=== PATIENT | male | born 1990 | race Caucasian/White ===

== ENCOUNTER 2023-09-28 18:55 | Emergency (ER) | payer OTHER, SELFPAY ==
[2023-09-28 19:07] VITALS: BP 164/81; PULSE 69; RESP 18; TEMP 36.7; O2SAT 98
--- NOTE | 2023-09-28 19:45 | DI.RAD_ITS ---
Exam(s) XR TOE RT FIFTH EXAM: XR TOE RT FIFTH CLINICAL HISTORY: injury toe. TECHNIQUE: 2D digital imaging was performed of the right foot. Three images were obtained. AP, obl ique and lateral views were obtained. COMPARISON: There are no priors for comparison. FINDINGS: BONES: No acute fracture is present. No bony destructive lesion is seen. JOINTS: There is mild lateral subluxation of the middle phalanx relative to the proximal phalanx of t he 5th toe. SOFT TISSUE: Normal. IMPRESSION: Mild lateral subluxation at the PIP joint of the right 5th toe. DATA REPOSITORY: RADIATION DOSE DELIVERED:
--- NOTE | 2023-09-28 21:15 | DI.RAD_ITS ---
Exam(s) XR TOE RT FIFTH EXAM: XR TOE RT FIFTH CLINICAL HISTORY: post reduction. TECHNIQUE: 2D digital imaging was performed of the right 5th toe. Three images were obtained. AP, oblique and lateral views were obtained. COMPARISON: CR,XR XR TOE RT FIFTH from 09/28/2023 FINDINGS: BONES: No acute fracture is present. No bony destructive lesion is seen. JOINTS: There is persistent mild lateral subluxation of the PIP joint of the 5th toe. This is apprec iated only on the oblique view. There is 1.5 mm of subluxation present. SOFT TISSUE: Normal. IMPRESSION: Persistent mild lateral subluxation of the PIP joint of the right 5th toe. DATA REPOSITORY: RADIATION DOSE DELIVERED:
--- NOTE | 2023-09-28 21:26 | DI.VRAD_ITS ---
Addendum created by Aisha Villela MD on 09/28/2023 9:27:39 PM EDT: There is some lateral offset of the middle and distal phalanges the 5th toe consistent with subluxation. Initial report created on 09/28/2023 9:26:19 PM EDT: PROCEDURE INFORMATION: Exam: XR Right Toe(s) Exam date and time: 09/28/2023 8:16 PM Age: 33 years old Clinical indication: Other: Injury toe 5th TECHNIQUE: Imaging protocol: Radiologic exam of the right toes. Views: Minimum 2 views. COMPARISON: No relevant prior studies available. FINDINGS: Bones/joints: Normal. Soft tissues: Normal. IMPRESSION: No evidence for fracture. Dictated and Authenticated by: Aisha Villela MD. Ordering:FOSTER Teague MD
--- NOTE | 2023-09-28 21:29 | DI.VRAD_ITS ---
PROCEDURE INFORMATION: Exam: XR Right Toe(s) Exam date and time: 09/28/2023 9:09 PM Age: 33 years old Clinical indication: Screening exam; Post reduction TECHNIQUE: Imaging protocol: Radiologic exam of the right toes. Views: Minimum 2 views. COMPARISON: CR XR TOE RT FIFTH 09/28/2023 8:16 PM FINDINGS: Bones/joints: There is some mild subluxation at the PIP joint of the 5th toe, improved compared to earlier exam. No fracture. Soft tissues: Normal. IMPRESSION: Near anatomic alignment PIP joint 5th toe. Dictated and Authenticated by: Aisha Villela MD. Ordering:FOSTER Teague MD
--- NOTE | 2023-09-28 21:53 | W.EDPROG ---
Date of service: 09/28/23 Time of Service: 21:53 Medical Decision Making I participated in patient's care. In brief this is a healthy 33-year-[place] history of right pinky toe dislocation. He had caught his toe earlier this evening and noticed that it was dislocated. I pulled axial traction and felt a small pop. Patient felt improved range of motion. Will order follow-up plain films. 11:40 PM Patient was ultimately discharged. His third x-ray showed persistent lateral subluxation of the little toe distal phalanx. He was livier taped and advised to follow-up as an outpatient. Quality:[facility] Health Related Social Needs: No Data to Display Procedures Orthopedic Joint Reduction Joint #1: Time Out Performed: Yes Side: right Joint Reduction Location: toe Analgesia: digital block (Digital block performed by patient's advanced practice provider. Please see her separate note.) Technique used: traction/counter-traction Post-reduction neuro exam: intact Post-reduction vascular: intact Post Reduction X-Ray Obtained: Yes Discharge Plan Discharge Details Chief Complaint: Orthopedic Primary Care Provider: No,Local ED Provider: Zahida Rothman Home Meds and New Rx's Prescriptions: No Action fluoxetine 20 mg capsule 20 mg PO DAILY Patient Comments: TAKE 1 CAPSULE BY MOUTH EVERY DAY
--- NOTE | 2023-09-28 22:16 | DI.RAD_ITS ---
Exam(s) XR TOE RT FIFTH EXAM: XR TOE RT FIFTH CLINICAL HISTORY: Postreduction. TECHNIQUE: 2D digital imaging was performed of the right toe. Three images were obtained. AP, obli que and lateral views were obtained. COMPARISON: CR,XR XR TOE RT FIFTH from 09/28/2023 FINDINGS: BONES: No acute fracture is present. No bony destructive lesion is seen. JOINTS: There is persistent 1.5 mm lateral subluxation of the PIP joint of the right 5th toe. This i s only appreciated on the oblique view. SOFT TISSUE: Normal. IMPRESSION: Unchanged lateral subluxation of the PIP joint of the 5th toe. DATA REPOSITORY: RADIATION DOSE DELIVERED:
--- NOTE | 2023-09-28 23:21 | DI.VRAD_ITS ---
PROCEDURE INFORMATION: Exam: XR Right Toe(s) Exam date and time: 09/28/2023 10:09 PM Age: 33 years old Clinical indication: Other: Post reduction TECHNIQUE: Imaging protocol: Radiologic exam of the right toes. Views: Minimum 2 views. COMPARISON: CR XR TOE RT FIFTH 09/28/2023 9:09 PM FINDINGS: Bones/joints: Persistent mild lateral subluxation of the little toe distal phalanx, unchanged from the most recent comparison. No acute fracture. Other bones and joints are intact. Soft tissues: Normal. IMPRESSION: Persistent lateral subluxation of the little toe distal phalanx. Dictated and Authenticated by: Gary Denton MD. Ordering:JOSEF Levy MD
== END 2023-09-28 22:47 | disposition home or self-care (01) ==
PROVIDERS: Emergency Provider Physician Assistant
DX: S93.134A Subluxation of interphalangeal joint of right lesser toe(s), initial encounter (principal); W54.1XXA Struck by dog, initial encounter; Y93.89 Activity, other specified; Y92.018 Other place in single-family (private) house as the place of occurrence of the external cause
CPT/HCPCS: 00123; 28660; 99283; 73660